=== PATIENT | female | born 1970 | race Caucasian/White ===

== ENCOUNTER 2021-12-09 02:38 | Emergency (ER) | payer SELFPAY ==
[2021-12-09 02:45] VITALS: BP 134/76; PULSE 84; RESP 18; TEMP 36.1; O2SAT 99; BMI 25.0
--- NOTE | 2021-12-09 02:55 | ED_ITS ---
HPI - Extremity Problem General: Chief complaint: Extremity Injury, Upper Stated complaint: Bug bites Time Seen by Provider: 12/09/21 02:41 History of Present Illness: 51-year-old female who had her cast placed for an elbow fracture. The cast is only few days old. Evidently, the fracture, however, is 6 weeks or so old. The patient states she went mushroom hunting yesterday, and was in the [place]. She awoke early this morning to the feeling of something moving around inside her cast. She notes that she felt it bite her. Since then, there has been increased swelling and pain to the forearm. She thinks that her fingers are more swollen on that side as well. MD Complaint: extremity pain and extremity swelling Onset (ago): hour(s) Pain Consistency: constant Location: right and upper extremity Radiation: none Relieving factors: nothing Exacerbating factors: nothing Associated symptoms: Reports other; Deny chest pain or fever(s) Review of Systems Const: Denies: fever(s) or chills Card: Denies: chest pain Resp: Denies: dyspnea or wheezing GI: Denies: abdominal pain or vomiting Skin/Breast: Reports: pruritus, erythema and skin swelling Physical Exam Const: COMMON NORMALS: no acute distress GENERAL APPEARANCE: cooperative HENMT: COMMON NORMALS: normocephalic and atraumatic HEAD & SCALP: normocephalic and atraumatic Eye: COMMON NORMALS: Equal, round and reactive pupils present and EOMs intact bilaterally PUPIL: Yes Equal, round and reactive pupils present Neck/C-Spine: COMMON NORMALS: full ROM Chest: COMMONS NORMALS: normal inspection of the chest Resp: COMMON NORMALS: normal respiratory effort, No use of accessory muscles and clear to auscultation bilaterally AUSCULTATION: clear to auscultation bilaterally Cardio: COMMON NORMALS: regular rate and regular rhythm RATE: regular rate RHYTHM: regular rhythm Extremity: NARRATIVE EXTREMITY EXAM: Long-arm cast the right upper extremity. Mild hand swelling. Normal capillary refill. Cast is removed. Neuro: TORO COMA SCALE: document [facility] findings [place] coma scale eye opening: Spontaneous [place] coma scale verbal response: Orientated [place] coma scale motor response: Obey commands [place] coma scale total score: 15 SENSORY EXAM: Yes extremities (Normal) Course Vital Signs: Vital signs: Vital Signs Temperature 97 F L 12/09/21 02:45 Pulse Rate 84 12/09/21 02:45 Respiratory Rate 18 12/09/21 02:45 Blood Pressure 134/76 12/09/21 02:45 Pulse Oximetry 99 12/09/21 02:45 MDM - Extremity (Nontraumatic) Medical Decision Making Upon removal of cast, no skin breakdown, or overt bite is seen. There is some mild diffuse redness. Cast is noted to be significantly tight. Patient feels much improved well upon removal. Patient is placed in a long-arm splint after being allowed to wash her upper extremity thoroughly. She will follow-up with her orthopedic surgeon. Discharge Plan Discharge Patient Disposition: Home Clinical Impression: Fracture of humerus, Cast discomfort Condition: Stable Discharge Orders: Discharge ED (Routine); Ordered 12/09/21 Ordered By: Casper Wood Patient Instructions: Cast Care (ED) Activity Restrictions/Additional Instructions: Call your orthopedic surgeon on Friday, to let them know your cast had to be removed due to tightness and irritation. They may want to see you to replace your cast. Return for worsening swelling or discomfort, loss of feeling, any other concerning symptoms. Coding Level of Care Code ED [employer] for Alfredo Fwdeuce Exam Comprehensive
[2021-12-09 04:32] VITALS: BP 137/90; PULSE 70; RESP 20; O2SAT 99
== END 2021-12-09 04:37 | disposition home or self-care (01) ==
PROVIDERS: Emergency Provider Emergency Medicine
DX: S42.301A Unspecified fracture of shaft of humerus, right arm, initial encounter for closed fracture (principal); X58.XXXA Exposure to other specified factors, initial encounter; Z46.89 Encounter for fitting and adjustment of other specified devices
CPT/HCPCS: 29125; 99283